=== PATIENT | female | born 1945 | race Caucasian/White ===

== ENCOUNTER 2018-09-16 19:43 | Emergency (ER) | payer MEDICARE ==
[2018-09-16] MEDS ORDERED: ASPIRIN 81 MG TABLET, CHEWABLE PO ONE (21:34)
[2018-09-16] MEDS ORDERED: LABETALOL HCL INJ 20 MG/4 ML DISP.SYRIN IV ONE ×2 (21:37→21:40)
[2018-09-16] MEDS ORDERED: ONDANSETRON HCL INJ/PF 4 MG/2 ML SDV IV ONE (21:40)
--- NOTE | 2018-09-16 21:46 | ER Document Report ---
ED General - General Mode of Arrival: Ambulatory Information source: Patient, Relative TRAVEL OUTSIDE OF THE [place] IN LAST 30 DAYS: No - HPI Onset: Yesterday Onset/Duration: Sudden Quality of pain: Achy, Stabbing Severity: Moderate Associated symptoms: Diarrhea, Nausea, Vomiting. denies: Chest pain Exacerbated by: Denies Relieved by: Denies Similar symptoms previously: No Recently seen / treated by doctor: No <BEREKET SAMUELS - Last Filed: 09/16/18 23:36> <YUDITH DIALLO - Last Filed: 09/17/18 05:22> - General Chief Complaint: Nausea/Vomiting/Diarrhea Stated Complaint: VOMITTING,DIZZINESS Time Seen by Provider: 09/16/18 21:33 Notes: 72-year-old female with no reported past medical history, 50+-pack-year smoking history presents via private vehicle with complaint of nausea, vomiting, abdominal pain and shortness of breath that started 1 day prior to arrival. Patient's pain is described as stabbing, constant and located in the right upper quadrant. Patient has had multiple episodes of nonbloody nonbilious emesis. She denies any black or bloody stools. Patient's shortness of breath is also described as constant, unchanged from patient's baseline. Patient denies any sick contacts. She has not seen a primary care provider in over 5 years. She does report a remote history of endometrial cancer. She denies any fever, chills, chest pain, lower extremity edema, history of PE, DVT. (BEREKET SAMUELS) - Related Data Allergies/Adverse Reactions: Penicillins Allergy (Verified 09/16/18 22:17) Past Medical History - General Information source: Patient, Relative, [facility] Records - Social History Smoking Status: Current Every Day Smoker Cigarette use (# per day): Yes - 20 Smoking Education Provided: Yes - Smoking cessation counseling was provided for 4 minutes at the bedside Frequency of alcohol use: None Drug Abuse: None Lives with: Family Family History: Reviewed & Not Pertinent Patient has suicidal ideation: No Patient has homicidal ideation: No - Medical History Medical History: Negative <BEREKET SAMUELS - Last Filed: 09/16/18 23:36> Review of Systems - Review of Systems Constitutional: Recent illness. denies: Fever, Weakness EENT: denies: Blurred vision, Nose congestion Cardiovascular: Dyspnea. denies: Chest pain Respiratory: Short of breath. denies: Wheezing Gastrointestinal: Abdominal pain, Diarrhea, Nausea, Vomiting. denies: Blood in vomit Genitourinary: denies: Dysuria, Flank pain Female Genitourinary: No symptoms reported Musculoskeletal: denies: Back pain Skin: No symptoms reported Hematologic/Lymphatic: No symptoms reported Neurological/Psychological: denies: Headaches -: Yes All other systems reviewed and negative <BEREKET SAMUELS - Last Filed: 09/16/18 23:36> Physical Exam <BEREKET SAMUELS - Last Filed: 09/16/18 23:36> - Vital signs Vitals: Temp Pulse Resp BP Pulse Ox 97.4 F 103 H 16 152/89 H 96 09/16/18 21:13 09/16/18 21:13 09/16/18 21:13 09/16/18 21:13 09/16/18 21:13 - Notes Notes: PHYSICAL EXAMINATION: GENERAL: Thin, frail, mild distress. HEAD: Atraumatic, normocephalic. EYES: Pupils equal round and reactive to light, extraocular movements intact, conjunctiva are normal. ENT: Nares patent, oropharynx clear without exudates. Moist mucous membranes. NECK: Normal range of motion, supple without lymphadenopathy LUNGS: Breath sounds clear to auscultation bilaterally and equal. No wheezes rales or rhonchi. HEART: Regular rate and rhythm without murmurs ABDOMEN: Tenderness with palpation to the right upper quadrant and epigastric region. No guarding, no rebound. No masses appreciated. Female : deferred Musculoskeletal: Normal range of motion, no pitting or edema. No cyanosis. NEUROLOGICAL: Cranial nerves grossly intact. Normal speech, normal gait. N ormal sensory, motor exams PSYCH: Normal mood, normal affect. SKIN: Warm, Dry, normal turgor, no rashes or lesions noted. (BEREKET SAMUELS) Course - Laboratory Result Diagrams: 09/16/18 21:40 09/16/18 21:40 <BEREKET SAMUELS - Last Filed: 09/16/18 23:36> - Laboratory Result Diagrams: 09/16/18 21:40 09/16/18 22:46 <YUDITH DIALLO - Last Filed: 09/17/18 05:22> - Re-evaluation Re-evalutation: Laboratory 09/16/18 09/16/18 09/16/18 21:40 21:40 21:40 WBC 15.8 H RBC 5.94 H Hgb 18.7 H Hct 55.0 H MCV 92 MCH 31.4 MCHC 34.0 RDW 15.2 H Plt Count 308 Total Counted 100 Seg Neutrophils % Not Reportable Seg Neuts % (Manual) 94 H Band Neutrophils % 2 L Lymphocytes % Not Reportable Lymphocytes % (Manual) 4 L Monocytes % Not Reportable Monocytes % (Manual) 0 L Eosinophils % Not Reportable Eosinophils % (Manual) 0 Basophils % Not Reportable Basophils % (Manual) 0 Absolute Neutrophils Not Reportable Abs Neuts (Manual) 15.2 H Absolute Lymphocytes Not Reportable Abs Lymphs (Manual) 0.6 Absolute Monocytes Not Reportable Abs Monocytes (Manual) 0.0 L Absolute Eosinophils Not Reportable Absolute Eos (Manual) 0.0 Absolute Basophils Not Reportable Abs Basophils (Manual) 0.0 Platelet Comment ADEQUATE Poikilocytosis SLIGHT [place] Cells SLIGHT Sodium Cancelled Potassium Cancelled Chloride Cancelled Carbon Dioxide Cancelled Anion Gap Cancelled BUN Cancelled Creatinine Cancelled Est GFR ( Amer) Cancelled Est GFR (Non-Af Amer) Cancelled Glucose Cancelled Calcium Cancelled Total Bilirubin Cancelled Direct Bilirubin Cancelled Neonat Total Bilirubin Cancelled Neonat Direct Bilirubin Cancelled Neonat Indirect Bili Cancelled AST Cancelled ALT Cancelled Alkaline Phosphatase Cancelled Creatine Kinase Cancelled CK-MB (CK-2) 9.32 H Troponin I 2.090 Total Protein Cancelled Albumin Cancelled Lipase 09/16/18 09/16/18 22:46 22:46 WBC RBC Hgb Hct MCV MCH MCHC RDW Plt Count Total Counted Seg Neutrophils % Seg Neuts % (Manual) Band Neutrophils % Lymphocytes % Lymphocytes % (Manual) Monocytes % Monocytes % (Manual) Eosinophils % Eosinophils % (Manual) Basophils % Basophils % (Manual) Absolute Neutrophils Abs Neuts (Manual) Absolute Lymphocytes Abs Lymphs (Manual) Absolute Monocytes Abs Monocytes (Manual) Absolute Eosinophils Absolute Eos (Manual) Absolute Basophils Abs Basophils (Manual) Platelet Comment Poikilocytosis Fan Cells Sodium 140.9 Potassium 4.2 Chloride 103 Carbon Dioxide 21 L Anion Gap 17 BUN 34 H Creatinine 1.73 H Est GFR ( Amer) 35 L Est GFR (Non-Af Amer) 29 L Glucose 198 H Calcium 10.3 H Total Bilirubin 0.9 Direct Bilirubin 0.2 Neonat Total Bilirubin Not Reportable Neonat Direct Bilirubin Not Reportable Neonat Indirect Bili Not Reportable AST 37 H ALT 14 Alkaline Phosphatase 128 H Creatine Kinase 99 CK-MB (CK-2) Troponin I Total Protein 7.5 Albumin 4.6 Lipase 113.0 Chest X-Ray 09/16/18 21:34 IMPRESSION: COPD. Lungs are clear copyright 2011 [employer]- All Rights Reserved Temp Pulse Resp BP Pulse Ox 97.4 F 103 H 17 149/101 H 99 09/16/18 21:13 09/16/18 21:13 09/16/18 23:01 09/16/18 23:01 09/16/18 23:01 09/16/18 23:36 72-year-old female presented with complaint of nausea, vomiting and diarrhea as well as upper abdominal pain that started yesterday. Patient reported multiple episodes of vomiting, diarrhea. Patient also complaining of shortness of breath that has been present for a few months. Patient reports no past medical history but has not been seen by a primary care physician in over 5 years. She does have a 50+ pack year smoking history. Upon arrival patient denies chest pain but her EKG shows ST elevation in V3 with hyperacute T waves and diffuse ST depression. [employer] music professor contacted who states that the EKG was not concerning for STEMI. He does not advise lytics at this time. Patient did receive aspirin, Lovenox. Repeat EKG obtained immediately and did show improvements and ST depression and ST elevation. CBC does show a leukoc ytosis without anemia. CMP shows hyperglycemia without evidence of DKA and an AK I with a creatinine of 1.73. Patient did receive Zofran, fentanyl for nausea and pain. Bedside ultrasound was performed and showed no evidence of aortic aneurysm, dissection. Troponin is elevated at 2. Patient continues to deny chest pain. Because of the patient's significant abdominal pain right upper quadrant ultrasound was obtained and showed no evidence of cholecystitis but did show a plaque filled aorta. CT of the abdomen and pelvis is pending upon sign out to Dr. Diallo. (BEREKET SAMUELS) 09/17/18 01:05 The second troponin is actually going up a little bit from 2.0-2.1. CT scan shows large amount of calcification in aorta with almost complete occlusion of the infrarenal aorta but has some collateral circulation. There is some mucus formation and dilation around the appendix but not called as appendicitis however she is complaining of right lower quadrant pain and does have an elevated WBC count so I am concerned about appendicitis. I am starting her on antibiotics at this time. Patient likely is having a concomitant ID. I can might not imagine a surgeon taking her to the OR right now in the setting of this ID however patient needs to be seen at a higher level care hospital in my opinion. She has received Lovenox and aspirin as well as labetalol. Starting antibiotics. Waiting for callback from [facility] as well as [facility]. 09/17/18 01:[address] Pratt at [facility]. They have accepted the patient. Dr. Luke as the attending for the medicine service. They are requesting that we switch her to a heparin drip. I have given in the concern that I have for possible appendicitis on top of the ID. They anticipate it is going to take several hours for a bed to come up so she could be here for quite some time. 09/17/18 05:20 Patient has been resting comfortably in no significant pain. We will get her sc heduled for every 8 hour antibiotics to cover for possible appendicitis. She is getting every 6 hours PTTs. Anticipate transfer later today. We will also ask surgery to see patient as well. (YUDITH DIALLO) - Vital Signs Vital signs: Temp Pulse Resp BP Pulse Ox 98.4 F 103 H 19 128/61 H 97 09/17/18 03:16 09/16/18 21:13 09/17/18 05:00 09/17/18 05:00 09/17/18 05:00 - Laboratory Laboratory results interpreted by me: 09/16/18 09/16/18 09/16/18 21:40 21:40 22:46 WBC 15.8 H RBC 5.94 H Hgb 18.7 H Hct 55.0 H RDW 15.2 H Seg Neuts % (Manual) 94 H Band Neutrophils % 2 L Lymphocytes % (Manual) 4 L Monocytes % (Manual) 0 L Abs Neuts (Manual) 15.2 H Abs Monocytes (Manual) 0.0 L APTT Carbon Dioxide 21 L BUN 34 H Creatinine 1.73 H Est GFR ( Amer) 35 L Est GFR (Non-Af Amer) 29 L Glucose 198 H Calcium 10.3 H AST 37 H Alkaline Phosphatase 128 H CK-MB (CK-2) 9.32 H 09/17/18 02:02 WBC RBC Hgb Hct RDW Seg Neuts % (Manual) Band Neutrophils % Lymphocytes % (Manual) Monocytes % (Manual) Abs Neuts (Manual) Abs Monocytes (Manual) APTT 37.2 H Carbon Dioxide BUN Creatinine Est GFR ( Amer) Est GFR (Non-Af Amer) Glucose Calcium AST Alkaline Phosphatase CK-MB (CK-2) Discharge <BEREKET SAMUELS E - Last Filed: 09/16/18 23:36> <YUDITH DIALLO - Last Filed: 09/17/18 05:22> - Discharge Clinical Impression: Nausea vomiting and diarrhea, NSTEMI (non-ST elevated myocardial infarction), LEE (acute kidney injury), Hyperglycemia, Tobacco dependence Hypertension Qualifiers: Hypertension type: unspecified Qualified Code(s): I10 - Essential (primary) hypertension Abdominal pain Qualifiers: Abdominal location: right upper quadrant Qualified Code(s): R10.11 - Right upper quadrant pain Condition: Fair Disposition: [facility]
[2018-09-16] MEDS ORDERED: ONDANSETRON HCL INJ/PF 4 MG/2 ML SDV ONE (21:48)
[2018-09-16 21:57] LABS: HEMOGLOBIN 18.7 g/dL (12.0-15.5); MEAN CORPUSCULAR HEMOGLOBIN 31.4 pg (27.0-33.4); MEAN CORPUSCULAR VOLUME 92 fl (80-97); PLATELET COUNT 308 10^3/uL (150-450); RED BLOOD COUNT 5.94 10^6/uL (3.72-5.28); RED CELL DISTRIBUTION WIDTH 15.2 % (11.5-14.0); WHITE BLOOD COUNT 15.8 10^3/uL (4.0-10.5)
[2018-09-16] MEDS ORDERED: ENOXAPARIN SODIUM INJ 30 MG/0.3 ML DISP.SYRIN ONE (22:00)
[2018-09-16] MEDS ORDERED: NITROGLYCERIN 0.4 MG/TAB 25 TAB/BOTTLE ONE (22:00)
[2018-09-16] MEDS ORDERED: CLOPIDOGREL BISULFATE 300 MG TABLET ONE (22:00)
[2018-09-16] MEDS ORDERED: ASPIRIN 81 MG TABLET, CHEWABLE ONE (22:00)
--- NOTE | 2018-09-16 22:01 | RADIOLOGY REPORT (SQ) ---
EXAM DESCRIPTION: XR CHEST 1 VIEW COMPLETED DATE/TME: 09/16/2018 21:34 CLINICAL HISTORY: 72 years, Female, Shortness of breath COMPARISON: None. NUMBER OF VIEWS: 1 TECHNIQUE: Portable chest LIMITATIONS: None. FINDINGS: The heart size is normal. Osteopenia. Underlying COPD. Lungs are clear. No pneumothorax IMPRESSION: COPD. Lungs are clear copyright 2011 [employer]- All Rights Reserved
[2018-09-16 22:24] LABS: ABSOLUTE LYMPHOCYTES# (MANUAL) 0.6 10^3/uL (0.5-4.7); ABSOLUTE NEUTROPHILS# (MANUAL) 15.2 10^3/uL (1.7-8.2); BAND NEUTROPHILS % (MANUAL) 2 % (3-5); BASOPHILS % (MANUAL) 0 % (0-2); EOSINOPHILS % (MANUAL) 0 % (0-6); LYMPHOCYTES % (MANUAL) 4 % (13-45); MONOCYTES % (MANUAL) 0 % (3-13); SEGMENTED NEUTROPHILS % (MAN) 94 % (42-78); TOTAL CELLS COUNTED 100
[2018-09-16 22:25] LABS: BURR CELLS SLIGHT; PLATELET COMMENT ADEQUATE; POIKILOCYTOSIS SLIGHT
[2018-09-16 22:28] LABS: CREATINE KINASE MB 9.32 ng/mL (<4.55)
[2018-09-16 22:29] LABS: TROPONIN I 2.09 ng/mL
[2018-09-16] MEDS ORDERED: FENTANYL CITRATE INJ/PF 100 MCG/2 ML AMPUL IV ONE (23:35)
[2018-09-16 23:36] LABS: ALANINE AMINOTRANSFERASE 14 U/L (9-52); ALBUMIN 4.6 g/dL (3.5-5.0); ALKALINE PHOSPHATASE 128 U/L (38-126); ANION GAP 17 (5-19); ASPARTATE AMINO TRANSFERASE 37 U/L (14-36); BILIRUBIN,DIRECT 0.2 mg/dL (0.0-0.4); BILIRUBIN,TOTAL 0.9 mg/dL (0.2-1.3); BLOOD UREA NITROGEN 34 mg/dL (7-20); CALCIUM 10.3 mg/dL (8.4-10.2); CARBON DIOXIDE 21 mmol/L (22-30); CHLORIDE 103 mmol/L (98-107); CREATINE KINASE 99 U/L (30-135); GLUCOSE 198 mg/dL (75-110); POTASSIUM 4.2 mmol/L (3.6-5.0); SODIUM 140.9 mmol/L (137-145); TOTAL PROTEIN 7.5 g/dL (6.3-8.2)
--- NOTE | 2018-09-17 00:28 | RADIOLOGY REPORT (SQ) ---
EXAM DESCRIPTION: US ABDOMEN LIMITED COMPLETED DATE/TME: 09/16/2018 22:28 CLINICAL HISTORY: 72 years, Female, ruq pain EXAM:Right upper quadrant abdomen ultrasound. CLINICAL HISTORY:72 years Female, ruq pain TECHNIQUE: Grayscale and Doppler sonogram of the right upper quadrant abdomen. COMPARISON: None. FINDINGS: Pancreas: Not well visualized due to intervening bowel gas. Aorta: The aorta near the diaphragmatic hiatus appears normal however remaining portion is completely occluded. IVC: Visualized portion is unremarkable. Liver: Homogenous echotexture. No mass lesion. Main portal vein: Normal hepatopetal flow. Gallbladder: No gallstones. No gallbladder wall thickening. Common bile duct: 0.2 cm. Right kidney: 4.3 cm. Severely atrophic and diffusely echogenic. No hydronephrosis. No nephrolithiasis. 1.3 cm hypoechoic exophytic findings near the superior pole may represent a cyst. IMPRESSION: No acute sonographic abnormality. Complete occlusion of the abdominal aorta. Atrophic right kidney. No hydronephrosis.
--- NOTE | 2018-09-17 00:49 | RADIOLOGY REPORT (SQ) ---
EXAM DESCRIPTION: CT ABDOMEN PELVIS WITH IV CONTRAST COMPLETED DATE/TME: 09/16/2018 22:30 CLINICAL HISTORY: 72 years, Female, abd pain Comparison: None TECHNIQUE: Contiguous axial CT images of the abdomen and pelvis were obtained. Sagittal and coronal reformats were reviewed. This exam was performed according to our departmental dose-optimization program, which includes automated exposure control, adjustment of the mA and/or kV according to patient size and/or use of iterative reconstruction technique. FINDINGS: Lung bases: Clear but with emphysematous changes. Liver: Mildly enlarged. No focal liver lesion. Gallbladder:Unremarkable. No gallstones. No gallbladder wall thickening or pericholecystic fluid. Spleen:Unremarkable Pancreas: Pancreas is unremarkable. Adrenal glands:Within normal limits. Kidneys/ureters: The right kidney is atrophic and shows decreased enhancement compared to the contralateral side. There is a small exophytic cyst arising from the superior right renal pole. No hydronephrosis. No nephrolithiasis. Stomach/small bowel/colon: Stomach is unremarkable. Small bowel is unremarkable. Colon is unremarkable. Appendix: There is mild circumferential prominence of the wall however the appendix is full of air and contrast material. Peritoneum: No free fluid. Vascular structures: Complete occlusion of the infrarenal abdominal aorta and bilateral iliac arteries there is reconstitution of flow to the common femoral arteries via the superior/inferior epigastric arteries (path of Romana). Lymph nodes: No abnormal lymph nodes. Bladder:Unremarkable. Pelvic organs: No acute abnormality Bones: No acute osseous abnormality. Chronic appearing compression deformity of L5. Schmorl's node, L3. Soft tissues: Unremarkable.. IMPRESSION: No acute intra-abdominal abnormality. 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 The mesenteric branches are well opacified. Chronic atrophy and hypofunctioning right kidney. There is mild mucosal thickening of the appendix however no other findings to support appendicitis.
[2018-09-17] MEDS ORDERED: METRONIDAZOLE 500 MG/NS RTU 500 MG/100 ML RTUPB IV ONE (01:04)
[2018-09-17] MEDS ORDERED: CIPROFLOXACIN 400 MG/D5W RTU 400 MG/200 ML RTUPB IV SCH ×3 (01:30→10:00)
[2018-09-17] MEDS ORDERED: HEPARIN SOD (PORCINE) 1,000 UNIT/ML 10 ML VIAL IV ONE (01:40)
[2018-09-17] MEDS ORDERED: HEPARIN SODIUM,PORCINE/D5W 25,000 UNIT/250 ML RTUINJ IV PRN (01:40)
[2018-09-17] MEDS ORDERED: CIPROFLOXACIN 400 MG/D5W RTU 400 MG/200 ML RTUPB IV ONE (02:00)
[2018-09-17 02:26] LABS: PROTHROMBIN TIME 13.7 SEC (11.4-15.4)
[2018-09-17 02:27] LABS: PARTIAL THROMBOPLASTIN TIME 37.2 SEC (23.5-35.8)
[2018-09-17] MEDS ORDERED: HEPARIN SOD (PORCINE) 1,000 UNIT/ML 10 ML VIAL IV PRN (04:40)
[2018-09-17 07:07] VITALS: BP 126/71
--- NOTE | 2018-09-17 07:20 | PDOC CONSULTATION ---
Consultation Consult Date: 09/17/18 Consult reason:: appendicitis History of Present Illness History of Present Illness: MARGE HUTSON is a 72 year old female with history of hysterectomy and radiation therapy for cervical cancer, smoker c/o RUQ pains with later in the day moving to the [facility] 2 days ago. Associated diarrhea and nausea. Denies chest pains. Has shortness of breath(Chronic smoker 50 pack years). Claims she also had resection of 3 feet of large bowel due to her cancer. 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 Claims had appendectomy in [address]. [address] scan of abdomen which showed thickening of appendiceal mucosa. No other abnormality noted. However, noted elevated troponin with EKG changes indicating [place]. Accepted at [facility] for [facility]. Past Surgical History Past Surgical History: Reports: Other - hysterectomy, appendectomy, colon resection,ileostomy Social History Lives with: Family Smoking Status: Current Every Day Smoker Family History Family History: Reviewed & Not Pertinent Parental Family History Reviewed: Yes Children Family History Reviewed: No Sibling(s) Family History Reviewed.: No Medication/Allergy Home Medications: No Home Medications 09/16/18 Allergies/Adverse Reactions: Penicillins Allergy (Verified 09/16/18 22:17) Review of Systems Constitutional: PRESENT: as per HPI Eyes: PRESENT: other - no visual/hearing changes Cardiovascular: PRESENT: other - no chest pains Respiratory: PRESENT: dyspnea Gastrointestinal: PRESENT: abdominal pain, diarrhea, nausea Genitourinary: PRESENT: other - no dysuria Neurological: PRESENT: other - no seizures Physical Exam Vital Signs: Temp Pulse Resp BP Pulse Ox 98.4 F 103 H 20 140/82 H 95 09/17/18 03:16 09/16/18 21:13 09/17/18 06:01 09/17/18 06:01 09/17/18 06:01 Intake & Output 09/15/18 09/16/18 09/17/18 06:59 06:59 06:59 Intake Total 300 Balance 300 Weight 34.1 kg General appearance: PRESENT: mild distress, thin Head exam: PRESENT: atraumatic Eye exam: PRESENT: conjunctiva pink Mouth exam: PRESENT: dry mucosa Neck exam: PRESENT: full ROM Respiratory exam: PRESENT: decreased breath sounds Cardiovascular exam: PRESENT: RRR Pulses: PRESENT: normal radial pulses Vascular exam: PRESENT: normal capillary refill GI/Abdominal exam: PRESENT: soft, tenderness - RLQ and RUQ Rectal exam: PRESENT: deferred Extremities exam: PRESENT: full ROM Musculoskeletal exam: PRESENT: ambulatory Neurological exam: PRESENT: alert, oriented to person, oriented to place, oriented to time, oriented to situation Psychiatric exam: PRESENT: appropriate affect Skin exam: PRESENT: normal color, warm Results Laboratory Results: 09/16/18 21:40 09/16/18 22:46 09/16/18 09/16/18 09/16/18 21:40 21:40 22:46 WBC 15.8 H RBC 5.94 H Hgb 18.7 H Hct 55.0 H MCV 92 MCH 31.4 MCHC 34.0 RDW 15.2 H Plt Count 308 Seg Neutrophils % Not Reportable Lymphocytes % Not Reportable Monocytes % Not Reportable Eosinophils % Not Reportable Basophils % Not Reportable Absolute Neutrophils Not Reportable Absolute Lymphocytes Not Reportable Absolute Monocytes Not Reportable Absolute Eosinophils Not Reportable Absolute Basophils Not Reportable Sodium Cancelled 140.9 Potassium Cancelled 4.2 Chloride Cancelled 103 Carbon Dioxide Cancelled 21 L Anion Gap Cancelled 17 BUN Cancelled 34 H Creatinine Cancelled 1.73 H Est GFR ( Amer) Cancelled 35 L Est GFR (Non-Af Amer) Cancelled 29 L Glucose Cancelled 198 H Calcium Cancelled 10.3 H Total Bilirubin Cancelled 0.9 AST Cancelled 37 H ALT Cancelled 14 Alkaline Phosphatase Cancelled 128 H Total Protein Cancelled 7.5 Albumin Cancelled 4.6 Lipase 09/16/18 22:46 WBC RBC Hgb Hct MCV MCH MCHC RDW Plt Count Seg Neutrophils % Lymphocytes % Monocytes % Eosinophils % Basophils % Absolute Neutrophils Absolute Lymphocytes Absolute Monocytes Absolute Eosinophils Absolute Basophils Sodium Potassium Chloride Carbon Dioxide Anion Gap BUN Creatinine Est GFR ( Amer) Est GFR (Non-Af Amer) Glucose Calcium Total Bilirubin AST ALT Alkaline Phosphatase Total Protein Albumin Lipase 113.0 09/16/18 09/16/18 09/16/18 21:40 21:40 22:46 Creatine Kinase Cancelled 99 CK-MB (CK-2) 9.32 H Troponin I 2.090 09/17/18 09/17/18 00:02 03:46 Creatine Kinase CK-MB (CK-2) Troponin I 2.150 2.040 Impressions: Chest X-Ray 09/16/18 21:34 IMPRESSION: COPD. Lungs are clear copyright 2011 [employer]- All Rights Reserved Abdomen Ultrasound 09/16/18 22:28 IMPRESSION: No acute sonographic abnormality. Complete occlusion of the abdominal aorta. Atrophic right kidney. No hydronephrosis. Abdomen/Pelvis CT 09/16/18 22:30 IMPRESSION: No acute intra-abdominal abnormality. 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 The mesenteric branches are well opacified. Chronic atrophy and hypofunctioning right kidney. There is mild mucosal thickening of the appendix however no other findings to support appendicitis. Assessment & Plan - Diagnosis (1) early acute appendicitis Is this a current diagnosis for this admission?: Yes - Time Time Spent: 30 to 50 Minutes - Inpatient Certification Medical Necessity: Significant Comorbidiites Make Outpatient Treatment Too Risky, Need Close Monitoring Due to Risk of Patient Decompensation, Need for IV Antibiotics - Plan Summary Plan Summary: IMP: Early Acute Appendicitis Evolving [place] COPD In view of the [place], would treat with antibiotics. Agree with transfer to a tertiary facility.
[2018-09-17] MEDS: METRONIDAZOLE 500 MG/NS RTU 500 MG/100 ML RTUPB IV SCH ×2 (10:09→17:56)
--- NOTE | 2018-09-17 10:38 | ER Document Report ---
Doctor's Note Notes: 09/17/18 10:36 Rounds: Chart reviewed and patient interviewed. Patient presented with nausea and vomiting and abdominal pain. Except for the patient have an complete occlusion of the distal aorta with compensatory dilation of the other vessels around the occlusion, patient had essentially negative CT of the abdomen and p karl and ultrasound of the abdomen. During her workup, patient was noted to have an elevated troponin of over 2, but it is declining downward at 1.6 now. She is awaiting transfer to [facility] for care of her end STEMI. This morning, patient says that she is feeling better and her abdominal pain is decreased. Patient has received Cipro and Flagyl. Patient appears to be medically stable for transfer. Alycia Hdz MD
[2018-09-17 11:02] LABS: APPEARANCE,URINE CLOUDY; BILIRUBIN,URINE NEGATIVE (NEGATIVE); COLOR,URINE YELLOW; GLUCOSE, URINE NEGATIVE (NEGATIVE); KETONES,URINE NEGATIVE (NEGATIVE); LEUKOCYTE ESTERASE,URINE TRACE (NEGATIVE); NITRITE,URINE NEGATIVE (NEGATIVE); PROTEIN,URINE >=500 mg/dL (NEGATIVE); URINE SPECIFIC GRAVITY 1.054; UROBILINOGEN,URINE NEGATIVE mg/dL (<2.0)
--- NOTE | 2018-09-18 12:45 | EKG REPORT ---
SEVERITY:- ABNORMAL ECG - SINUS TACHYCARDIA RIGHT ATRIAL ABNORMALITY LEFT ANTERIOR FASCICULAR BLOCK LEFT VENTRICULAR HYPERTROPHY ST DEPRESSION, CONSIDER ISCHEMIA, LAT LEADS BORDERLINE PROLONGED QT INTERVAL : Confirmed by: Sandi Gamez 18-Sep-2018 12:44:48
--- NOTE | 2018-09-18 12:45 | EKG REPORT ---
SEVERITY:- ABNORMAL ECG - SINUS RHYTHM RIGHT ATRIAL ABNORMALITY LEFT ANTERIOR FASCICULAR BLOCK LEFT VENTRICULAR HYPERTROPHY BORDERLINE PROLONGED QT INTERVAL : Confirmed by: Sandi Gamez 18-Sep-2018 12:44:21
== END 2018-09-17 18:15 | disposition short-term general hospital (02) ==
LOC: ER 19:43
DX: I21.4 Non-ST elevation (NSTEMI) myocardial infarction (principal); N17.9 Acute kidney failure, unspecified; R11.2 Nausea with vomiting, unspecified; R19.7 Diarrhea, unspecified; R73.9 Hyperglycemia, unspecified; R10.11 Right upper quadrant pain; I10 Essential (primary) hypertension; F17.210 Nicotine dependence, cigarettes, uncomplicated; R06.00 Dyspnea, unspecified; R06.02 Shortness of breath; R10.9 Unspecified abdominal pain
CPT/HCPCS: 93005; 99406; 99285; 96375; 96365; 96366; 96367; 96368; 36415; 87040; 82553; 82550; 83690; 85025; 85610; 85730; 80053; 81001; 84484; 71045; 76705; 74177; 93010; A9270 ×2; J1644 ×2; J3010; J3490; J2405; J1650; J0744